=== PATIENT | female | born 1960 | race Caucasian/White ===

== ENCOUNTER 2017-10-01 19:49 | Observation (INO) | END 2017-10-04 19:00 | disposition home or self-care (01) ==

== ENCOUNTER 2017-11-11 19:10 | Emergency (ER) | END 2017-11-11 23:19 | disposition left against medical advice (07) ==

== ENCOUNTER 2017-12-02 17:33 | Inpatient (IN) | END 2017-12-11 18:45 | disposition home or self-care (01) | DRG 392 ==